=== PATIENT | female | born 1975 | race Two or more races ===

== ENCOUNTER 2023-10-08 16:09 | Outpatient (REF) | payer MEDICAID, SELFPAY ==
[2023-10-09 17:28] LABS: Bacterial Vaginosis PCR POSITIVE (Negative); Candida Group PCR NOT DETECTED (Not Detect); Candida glab krusei PCR NOT DETECTED (Not Detect); Trichomonas vaginalis PCR DETECTED (Not Detect)
== END 2023-10-08 16:10 | disposition home or self-care (01) ==
LOC: HO.HHCLNP 16:09
PROVIDERS: Visit Provider Student in an Organized Health Care Education/Training Program
DX: B20 Human immunodeficiency virus [HIV] disease (principal)
CPT/HCPCS: 0352U; 88112

== ENCOUNTER 2023-10-30 09:10 | Outpatient (REF) | payer MEDICAID, SELFPAY ==
--- NOTE | ~2023-10-30 | XR_ITS ---
EXAMINATION: XR HIP, RIGHT CLINICAL INFORMATION: Right hip pain. Patient stated ever since she tripped February 2023 she has been having issues with hip pain especially when walking. COMPARISON: None available. TECHNIQUE: 3 views of the right hip. FINDINGS: Moderate narrowing of the right hip joint space with mild lateral acetabular hypertrophic change. Right hip alignment preserved. Faint calcification/ossification in the soft tissues adjacent to the greater trochanter. XR/XR hip RT min 2V IMPRESSION: Moderate degenerative changes in the right hip. Faint calcification/ossification in the soft tissues adjacent to the greater trochanter. Additional imaging with CT scan or MRI should be considered for further evaluation if there is clinical concern for fracture or other underlying pathology.
[2023-10-30 11:59] LABS: Hematocrit 37.9 % (37.0-47.0); Hemoglobin 12.8 g/dl (12.0-16.0); Mean Corpuscular HGB Conc 33.8 g/dl (31.0-35.0); Mean Corpuscular Hemoglobin 32.4 pg (27.0-33.0); Mean Corpuscular Volume 95.9 fL (80.0-98.0); Mean Platelet Volume 11.3 fL (9.4-12.3); Platelet Count 205 X10*3/uL (160-400); Red Blood Count 3.95 X10*6/uL (4.20-5.50); Red Cell Distribution Width 13.2 % (11.0-16.0)
[2023-10-30 12:20] LABS: Estimated Average Glucose 103 mg/dL; Hemoglobin A1c % 5.2 % (<6.0)
[2023-10-30 12:32] LABS: Alanine Aminotransferase 10 U/L (0-31); Albumin Level 3.8 g/dL (3.5-5.0); Alkaline Phosphatase 54 U/L (39-117); Anion Gap 10 (12-20); Aspartate Amino Transferase 13 U/L (5-31); Bilirubin Total 0.2 mg/dL (0.0-1.0); Blood Urea Nitrogen 10 mg/dL (9-16); Calcium 8.9 mg/dL (8.4-10.2); Carbon Dioxide 24 mmol/L (22-29); Chloride 109 mmol/L (96-108); Cholesterol 148 mg/dL (<200); Estimated Glomerular Filt Rate > 60; Glucose Random 88 mg/dL (60-115); HDL Cholesterol 38 mg/dL (>40); LDL Cholesterol Calculated 95 mg/dL (<100); Potassium 4.3 mmol/L (3.3-5.1); Sodium 139 mmol/L (135-145); Total Protein 6.6 g/dL (6.5-8.0); Triglycerides 75 mg/dL (<150)
[2023-10-30 12:50] LABS: TSH reflex Free T4 0.55 uIU/mL (0.32-4.0)
[2023-10-30 14:06] LABS: CT PCR NOT DETECTED (Not Detect.); NG PCR NOT DETECTED (Not Detect.)
[2023-10-31 03:21] LABS: Syphilis Screen Nonreactive (Nonreactive)
[2023-10-31 03:44] LABS: HBc Num1 0.11 S/CO (0.00-0.79); HBsAGNum1 0.36 S/CO (0.00-0.99); Hepatitis B Core Antibody Nonreactive (Nonreactive); Hepatitis B Surface Antigen Negative (Negative); ~HepC Num1 0.07 S/CO (0.00-0.79); ~Hepatitis B Surface Antibody NONREACTIVE (Nonreactive); ~Hepatitis C Antibody Nonreactive (Nonreactive)
[2023-10-31 03:45] LABS: Hepatitis A Antibody IgG Nonreactive (Nonreactive); ~Hepatitis A Antibody IgG 0.34 S/CO (0.00-0.99)
[2023-10-31 12:34] LABS: Absolute CD3 Count 778 cells/uL (840-3060); Absolute CD4 Count 378 cells/uL (490-1740); Absolute CD8 Count 400 cells/uL (180-1170); Absolute Lymphocytes 1035 cells/uL (850-3900); CD4 CD8 Ratio 0.94 (0.86-5.00); Percent CD3 Cells 75 % (57-85); Percent CD4 Cells 37 % (30-61); Percent CD8 Cells 39 % (12-42)
[2023-10-31 23:19] LABS: Cytomegalovirus Ab IgG >10.00 U/mL; Cytomegalovirus Ab IgM <30.00 AU/mL; Mumps Virus IgG Antibody <9.00 AU/mL; Rubella IgG Antibody <0.90 Index; Toxoplasma IgG Antibody <7.20 IU/mL; Toxoplasma IgM Antibody <8.00 AU/mL
[2023-11-01 14:23] LABS: HIV RNA PCR Qn Copies 4740 copies/mL (NOT DETECTED); HIV RNA PCR Qn Log Copies 3.68 (NOT DETECTED)
[2023-11-01 22:33] LABS: TS Negative Control Passed; TS Panel A 0; TS Panel B 1; TS Positive Control Passed; TSpotTB Negative (Negative)
[2023-11-06 13:43] LABS: Glucose-6-Phosphate Dehydrogen 14.4 U/g Hgb (7.0-20.5)
== END 2023-10-30 09:11 | disposition home or self-care (01) ==
LOC: HO.HHCL 09:10
PROVIDERS: Visit Provider Student in an Organized Health Care Education/Training Program
DX: Z00.00 Encounter for general adult medical examination without abnormal findings (principal); B20 Human immunodeficiency virus [HIV] disease; M25.551 Pain in right hip
CPT/HCPCS: 0353U; 36415; 73502; 80053; 80061; 82955; 83036; 84443; 85027; 86359; 86360; 86481; 86644; 86645; 86704; 86706; 86708; 86735; 86762; 86765; 86777; 86778; 86780; 86787; 86803; 87340; 87536

== ENCOUNTER 2024-04-28 10:56 | Outpatient (REF) | payer MEDICAID, SELFPAY ==
--- NOTE | ~2024-04-28 | XR_ITS ---
EXAMINATION: XR CHEST CLINICAL INFORMATION: night sweats to r/o mediastinal Lymphadenopathy COMPARISON: None available. TECHNIQUE: 2 views of the chest were obtained. FINDINGS: No significant abnormality is noted involving the heart, lungs, mediastinum, bony thorax or soft tissues. XR/XR chest 2V IMPRESSION: Unremarkable examination. Electronically signed by: Shayy Marie MD 04/28/2024 04:02 PM [facility]
[2024-04-28 13:35] LABS: Basophils Percent Auto 0.7 % (0-2); Eosinophils Absolute Auto 0.1 X10*3/uL (0.0-0.4); Hematocrit 39.4 % (37.0-47.0); Hemoglobin 12.9 g/dl (12.0-16.0); Imm Gran Abs Auto 0.01 X10*3/uL (0.00-0.03); Imm Gran Pct Auto 0.2 % (0.0-0.4); Lymphocytes Absolute Auto 1.4 X10*3/uL (1.2-4.9); Lymphocytes Percent Auto 31.7 % (20-40); MANUAL DIFF FLAG NO; Mean Corpuscular HGB Conc 32.7 g/dl (31.0-35.0); Mean Corpuscular Hemoglobin 32.2 pg (27.0-33.0); Mean Corpuscular Volume 98.3 fL (80.0-98.0); Mean Platelet Volume 11.1 fL (9.4-12.3); Monocytes Absolute Auto 0.4 X10*3/uL (0.1-1.2); Neutrophils Absolute Auto 2.5 x10*3/uL (2.0-8.3); Neutrophils Percent Auto 55.4 % (45-73); Platelet Count 236 X10*3/uL (160-400); Red Blood Count 4.01 X10*6/uL (4.20-5.50); Red Cell Distribution Width 13.2 % (11.0-16.0); White Blood Count 4.4 X10*3/uL (4.8-10.8)
[2024-04-28 13:47] LABS: Prothrombin Time 11.6 SEC (10.9-12.4)
[2024-04-28 14:18] LABS: Alanine Aminotransferase 15 U/L (0-31); Alkaline Phosphatase 66 U/L (39-117); Anion Gap 10 (12-20); Aspartate Amino Transferase 14 U/L (5-31); Bilirubin Total 0.4 mg/dL (0.0-1.0); Blood Urea Nitrogen 6 mg/dL (9-16); Calcium 8.6 mg/dL (8.4-10.2); Carbon Dioxide 24 mmol/L (22-29); Chloride 106 mmol/L (96-108); Estimated Glomerular Filt Rate > 60; Glucose Random 173 mg/dL (60-115); Lactate Dehydrogenase 152 U/L (122-220); Potassium 3.4 mmol/L (3.3-5.1); Sodium 137 mmol/L (135-145); Total Protein 7.2 g/dL (6.5-8.0)
[2024-04-29 14:48] LABS: HIV RNA PCR Qn Copies 188 copies/mL (NOT DETECTED); HIV RNA PCR Qn Log Copies 2.27 (NOT DETECTED)
[2024-05-01 18:03] LABS: Absolute CD3 Count 925 cells/uL (840-3060); Absolute CD4 Count 408 cells/uL (490-1740); Absolute CD8 Count 512 cells/uL (180-1170); Absolute Lymphocytes 1177 cells/uL (850-3900); Percent CD3 Cells 79 % (57-85); Percent CD4 Cells 35 % (30-61); Percent CD8 Cells 43 % (12-42)
[2024-05-25 02:33] LABS: Date Viral Load Collected NG; Dolutegravir Resistance NOT PREDICTED; HIV-1 Bictegravir Resistance NOT PREDICTED; HIV-1 Cabotegravir Resistance NOT PREDICTED; HIV-1 Elvitegravir Resistance NOT PREDICTED; Raltegravir Resistance NOT PREDICTED; Value of Last HIV Viral Load NG copies/mL
== END 2024-04-28 10:57 | disposition home or self-care (01) ==
LOC: HO.HHCL 10:56
PROVIDERS: Visit Provider Student in an Organized Health Care Education/Training Program
DX: Z21 Asymptomatic human immunodeficiency virus [HIV] infection status (principal); R23.3 Spontaneous ecchymoses; R61 Generalized hyperhidrosis; Z86.19 Personal history of other infectious and parasitic diseases
CPT/HCPCS: 36415; 71046; 80053; 83615; 85025; 85610; 85730; 86359; 86360; 87536; 87900; 87901; 87906

== ENCOUNTER 2024-05-26 12:02 | Outpatient (REF) | payer MEDICAID, SELFPAY ==
[2024-05-30 19:14] LABS: HIV RNA PCR Qn Copies 60 Copies/mL; HIV RNA PCR Qn Log Copies 1.77 Log cps/mL
== END 2024-05-26 12:03 | disposition home or self-care (01) ==
LOC: HO.HHCL 12:02
PROVIDERS: Visit Provider Internal Medicine
DX: B20 Human immunodeficiency virus [HIV] disease (principal)
CPT/HCPCS: 36415; 87536; 87900

== ENCOUNTER 2024-08-25 16:51 | Outpatient (REF) | payer MEDICAID, SELFPAY ==
--- OUTSIDE RECORDS SUMMARY | 2024-08-25 18:10 | XMS_ITS | Clinical Summary ---
Author Organization [facility] Address [address] [place] [address] Care Team Providers Care Wood Type Finisher Name Role Phone Unavailable Primary Care Provider Unavailabl e Source Comments PLEASE NOTE, if this patient is a minor, it may be UNLAWFUL to discuss sensitive information that is contained in these records (such as FAMILY PLANNING, MENTAL HEALTH or SUBSTANCE ABUSE) with the minor patient's parent or other person without the patient's specific authorization.[facility] Allergies Active Allergy Reactions Criticality Noted Date Comments Dapsone Other Severe 10/08/2023 Caused anemia despite reported normal G6PD Penicillins Rash Low 10/08/2023 Medications BIKTARVY 50-200-25 mg tab Take 1 Tablet by mouth once daily Active SYMBICORT 80-4.5 mcg/actuation inhaler Inhale 2 Puffs into the lungs 2 (two) times daily Active diclofenac sodium (VOLTAREN) 1 % gel Apply 2 g topically 2 (two) times daily Right Hip Active QUEtiapine (SEROQUEL) 300 mg tabletIndicatio ns:Major depressive disorder, recurrent, severe with psychotic features (HCC-CMS) Take 1 Tablet by mouth nightly at bedtime for 30 days 30 Tablet 5 09/07/19 25 Active FLUoxetine (PROZAC) 40 mg capsuleIndicati ons:Post-trauma tic stress disorder, unspecified,FOREST (generalized anxiety disorder),Major depressive disorder, recurrent, severe with psychotic features (HCC-CMS) Take 1 Capsule by mouth once daily for 30 days 30 Capsule 5 09/07/19 25 Active FLUoxetine (PROZAC) 40 mg capsuleIndicati ons:Post-trauma tic stress disorder, unspecified,Sev ere major depression (HCC-CMS),FOREST (generalized anxiety disorder) Take 1 Capsule by mouth once daily for 30 days 30 Capsule 5 08/08/19 25 Discontinu ed(Reorder (E-Cancel Not Sent)) QUEtiapine (SEROQUEL) 100 mg tabletIndicatio ns:Severe major depression ([facility]) Take 1 Tablet by mouth nightly at bedtime for 30 days 30 Tablet 5 08/08/19 25 Discontinu ed(Quantit y/Dosage and/or Sig change) Active Problems Problem Noted Date Diagnosed Date Bilateral hip pain 10/08/2023 HIV infection (HCC-CMS) 10/08/2023 Overview (03/27/2024): Dxed 2007 Heterosexual , NO IVDU hx -Hx of ARV non compliance, hx of taj esophagitis,Hx lowest CD4 150 -Hx of ARV: Truvada,ritonavir,seems other ARV but not sure, later Dolutegravir and Descovy ,Later Biktarvy since 2020 Mild intermittent asthma without complication Penicillin allergy 10/08/2023 Tobacco use 10/08/2023 FOREST (generalized anxiety disorder) 08/16/2023 Assessment & Plan (08/07/2024 1:13 PM EDT): A: racing thoughts, worrying Plan: continue therapy support, continue Prozac Assessment & Plan (07/10/2024 12:50 PM EST): A: tearful and sad Plan: Continue Seroquel, continue therapy support, continue Prozac Assessment & Plan (06/12/2024 4:25 PM EST): A: anxious state, father yesterday Plan: Continue Seroquel, continue therapy support, continue Prozac Assessment & Plan (05/01/2024 5:58 PM EST): A: worsened by Stressors Plan: Monitor response to Seroquel, continue therapy support and Prozac Assessment & Plan (03/27/2024 6:23 PM EDT): A: Emotional dysregulation, irritability, social isolation Plan: Monitor response to Seroquel, continue therapy support and Prozac Post-traumatic stress disorder, unspecified 07/27 Assessment & Plan (08/07/2024 1:14 PM EDT): A: trust issues Plan: Continue therapy, Continue Prozac 40 mg Assessment & Plan (07/10/2024 12:50 PM EST): A: trust issues Plan: Continue therapy, Continue Prozac 40 mg Assessment & Plan (06/12/2024 4:26 PM EST): A: Flashbacks, trust issues Plan: Continue therapy, Continue Prozac 40 mg Assessment & Plan (05/01/2024 5:58 PM EST): A: Flashbacks, nightmares, hypervigilance, trust issues Plan: Continue therapy, Continue Prozac 40 mg for now Assessment & Plan (03/27/2024 6:22 PM EDT): A: Flashbacks, nightmares, hypervigilance, trust issues Plan: Continue therapy, Continue Prozac 40 mg for now Major depressive disorder, r ecurrent, severe with psychotic features ([facility]) 08/16/2023 Overview (03/27/2024): Patient presents with symptoms consistent with MDD and borderline traits, PTSD, and anxiety, complicated by HIV diagnosis and other trauma. Current medication regimen (Prozac and mirtazapine) providing inadequate symptom control. Decision to discontinue ineffective mirtazapine and initiate Seroquel 100mg for mood stabilization and sleep management while continuing Prozac. Assessment & Plan (08/07/2024 1:13 PM EDT): A: Depressed mood crying spells and AH P: Increase Seroquel to 300 mg PO nightly. Continue Prozac RTC 4 weeks Assessment & Plan (07/10/2024 12:50 PM EST): A: symptoms under control P: continue Seroquel 100 mg PO nightly. Continue Prozac RTC 4 weeks Assessment & Plan (06/12/2024 4:25 PM EST): A: symptoms under control P: Resume Seroquel 100 mg PO nightly. Continue Prozac RTC 4 weeks Assessment & Plan (05/01/2024 5:57 PM EST): A: Mood irritability, sadness, guilt P: Resume Seroquel 100 mg PO nightly. Continue Prozac RTC 4 weeks Assessment & Plan (03/27/2024 3:50 PM EDT): A: Mood irritability, crying, anger, confrontational, poor sleep P: Stop Mirtazapine( not effective), self isolation, loss of interest. Start Seroquel 100 mg PO nightly. Continue Prozac RTC 2 weeks Resolved Problems Problem Noted Date Diagnosed Date Resolved Date Bipolar disorder with severe depression (HCC-CMS) 12/18/2023 03/27/2024 Encounters Date Type Department Care Team Description 08/07/2024 12:30 PM EDT Behavioral Health Visit [facility] [address] [place] [phone] Edith Hart APRN Major depressive disorder, recurrent, severe with psychotic features (HCC-CMS) (Primary Dx); Post-traumatic stress disorder, unspecified; FOREST (generalized anxiety disorder) 07/10/2024 12:00 PM EST Behavioral Health Visit [facility] [address] [place] [phone] Edith Hart APRN Post-traumatic stress disorder, unspecified; Severe major depression (HCC-CMS); FOREST (generalized anxiety disorder) 06/12/2024 1:00 PM EST Behavioral Health Visit [facility] [address] [place] [phone] Edith Hart APRN Post-traumatic stress disorder, unspecified; Severe major depression (HCC-CMS); FOREST (generalized anxiety disorder) from Last 3 Months Immunizations Immunization Administration Dates Next Due HEP A, UNSPECIFIED 03/01/2004 Hep A, adult 03/17/2024 Hep B, Unspecified 08/04/2004,03/01/2004, 004 Hep B,adult,adjuvanted (HEPLISAV) 03/17/2024 INFLUENZA, SEASONAL, INJECTABLE 08/17/19 23,09/20/2021,07/04/2019,06/12,02/17/2017,07/01/2012,07/14/2010 Influenza, Whole 05/15/2011,07/08/2009, 8 MENINGOCOCCAL ACWY, UNSPECIFIED 12/10/2018,06/12 Meningococcal (A,C,Y, W) con jugate vaccine 03/17/2024 PNEUMOCOCCAL CONJUGATE PCV 2 0 (Prevnar) 10/09/2023,08/16/2022 PNEUMOCOCCAL POLYSACCHARIDE PPV23 02/17/2017,02/2005 TDAP 10/09/2023,06/12/2018 Td (adult) unspecified 01/27/2004 Social History Tobacco Use Types Packs/Day Years Used Date Smoking Tobacco: Every Day Cigarettes 0.5 22.2 Started: 2002 Smokeless Tobacco: Never Tobacco Cessation:Ready to Q uit: No; Counseling Given: Yes Alcohol Use Standard Drinks/Week Comments Not Asked 0 (1 standard drink = 0.6 oz pur e alcohol) ocassionally Social Connections Answer Date Recorded Connectedness 0 03/04/2024 Financial Resource Strain Answer Date R ecorded Financial Resource Strain 0 2023 Stress Answer Date Recorded Stress 0 03/04/2024 Physical Activity Answer Date Recorded Physical Activity 0 03/04/2024 Food Insecurity Answer Date Recorded Food 0 03/04/2024 Transportation Needs Answer Date Record ed Transportation 0 03/04/2024 Housing Stability Answer Date Recorded Housing 0 03/04/2024 Safety and Environment Answer Date Franklin rded Safety 0 03/04/2024 Utilities Answer Date Recorded Utilities 0 03/04/2024 Employment Answer Date Recorded Stress 0 03/04/2024 Comments Unknown Sex and Gender Information Value Date Recorded Sex Assigned at Female 03/04/2024 7:16 AM PDT Legal Sex Female 7:16 AM PDT Gender Identity Female 03/04/2024 7:16 AM PDT Sexual Orientation Not on file Plan of Treatment Upcoming Encounters Date Type Department Care Team (Late st Contact Info) Description 09/04/2024 12:30 PM EDT Behavioral Health Visit [facility] [address] [place] [phone] Edith Hart, INSPECTOR STRUCTURAL BONDING [address] [facility] [place] [id number] Health Maintenance Due Date Last Done Comments Anxiety Screening 1977 Depression Monitoring 1977 Diabetes Screening 1977 HPV Screening 1977 Pap + HPV 1977 Syphilis Screening 05/21/1991 Relationship Safety Screening/Counseling 1992 Hypertension Screening (#1) 1995 Imm-MMR (1 of 2 - Risk 2-dos e series) 1995 Imm-Zoster, Recombinant (1 of 2) 1996 Cervical Cancer Screening 1998 Pap Smear 1998 Breast Cancer Screening (Mammogram) 2017 CT Colonography 2022 Colonoscopy 2022 Colorectal Cancer Screening 2022 FIT/gFOBT 2022 Fecal DNA 2022 Flexible Sigmoidoscopy 2022 [id number] ( season) 2024 023, 09/20/2021 Alcohol and Drug Screen 05/28/2024 Lipid Screening 10/29/2024 10/30/2023 Tobacco Cessation Counseling (#1) 03/27/2025 Imm-Meningococcal (4 - Risk 2-dose series) 03/17/2029 03/17/2024, 12/10/2018, 06/12/2018 Imm-DTaP/Tdap/Td (3 - Td or Tdap) 10/08/2033 10/09/2023, 06/12/2018, 01/27/2004 Imm-Pneumococcal Completed 10/09/2023, , 02/17/2017, Additional history exists Hepatitis C Screening Completed 10/30/2023 Imm-Hepatitis A Completed 03/17/2024, 03/01/2004 Imm-Hepatitis B Completed 04/28/2024, 02/26, 08/04/2004, Additional history exists Imm-Influenza Completed 04/28/2024, 07/27, 09/20/2021, Additional history exists Cervical Ablation/Cold-Knife Conization Discontinued Cervical Cryotherapy Discontinued Colposcopy Discontinued Endometrial Biopsy Discontinued Excision/Leep Discontinued HPV Genotyping Discontinued Vaginal Pap Discontinued Vulvoscopy Discontinued Insurance [place] MEDICAID [facility]
[2024-08-27 13:13] LABS: Trichomonas (NAAT) NOT DETECTED (NOT DETECTED)
[2024-08-27 15:54] LABS: C. trachomatis RNA TMA NOT DETECTED (NOT DETECTED); N. gonorrhoeae RNA TMA NOT DETECTED (NOT DETECTED)
[2024-08-28 15:06] LABS: HPV Genotype 16 Negative (Negative); HPV Genotype 18 Negative (Negative); HPV High Risk Negative (Negative)
== END 2024-08-25 16:52 | disposition home or self-care (01) ==
LOC: HO.HHCLNP 16:51
PROVIDERS: Visit Provider Advanced Practice Midwife
DX: Z12.4 Encounter for screening for malignant neoplasm of cervix (principal); Z11.3 Encounter for screening for infections with a predominantly sexual mode of transmission
CPT/HCPCS: 87491; 87591; 87626; 87661; 88175

== ENCOUNTER 2024-10-28 17:17 | Outpatient (REF) | payer MEDICAID, SELFPAY ==
--- OUTSIDE RECORDS SUMMARY | 2024-10-28 17:23 | XMS_ITS | Clinical Summary ---
Author Organization [facility] Address [address] [place] [address] Care Team Providers Care Barrel Inspector Tight Name Role Phone Unavailable Primary Care Provider [...] 2 (two) times daily Right Hip Active FLUoxetine (PROZAC) 40 mg capsuleIndicati ons:Post-trauma tic stress disorder, unspecified,FOREST (generalized anxiety disorder),Major depressive disorder, recurrent, severe with psychotic features (HCC-CMS) Take 1 Capsule by mouth once daily for 30 days 30 Capsule 1 5 Active QUEtiapine (SEROQUEL) 300 mg tabletIndicatio ns:Major depressive disorder, recurrent, severe with psychotic features (HCC-CMS) Take 1 Tablet by mouth nightly at bedtime for 30 days 30 Tablet 1 5 Active Active Problems Problem Noted Date Diagnosed Date Bilateral hip pain 10/08/2023 HIV infection (HCC-CMS) 10/08/2023 Overview (03/27/2024): Dxed 2007 Heterosexual , NO IVDU hx -Hx of ARV non compliance, hx of taj esophagitis,Hx lowest CD4 150 -Hx of ARV: Truvada,ritonavir,seems other ARV but not sure, later Dolutegravir and Descovy ,Later Biktarvy since 2020 Mild intermittent asthma without complication ([facility]-HCC) 10/08/2023 Penicillin allergy 10/08/2023 Tobacco use 10/08/2023 FOREST (generalized anxiety disorder) 08/16/2023 Assessment & Plan (09/04/2024 1:21 PM EDT): A: improving Plan: continue therapy support, continue Prozac Assessment & Plan (08/07/2024 1:13 PM EDT): [...] stress disorder, unspecified 07/27 Assessment & Plan (09/04/2024 1:21 PM EDT): A: trust issues Plan: Continue therapy, Continue Prozac 40 mg Assessment & Plan (08/07/2024 1:14 PM EDT): [...] disorder, r ecurrent, severe with psychotic features ([facility]) 08/16/2023 Overview (03/27/2024): Patient presents with symptoms consistent with MDD and borderline traits, PTSD, and anxiety, complicated by HIV diagnosis and other trauma. Current medication regimen (Prozac and mirtazapine) providing inadequate symptom control. Decision to discontinue ineffective mirtazapine and initiate Seroquel 100mg for mood stabilization and sleep management while continuing Prozac. Assessment & Plan (09/04/2024 1:21 PM EDT): A: psychological symptoms under reasonable control P: Continue Seroquel to 300 mg PO nightly. Continue Prozac RTC 8 weeks Assessment & Plan (08/07/2024 1:13 PM EDT): [...] Resolved Date Bipolar disorder with severe depression ([facility]) 12/18/2023 03/27/2024 Encounters Date Type Department Care Team Description 09/04/2024 12:30 PM EDT Behavioral Health Visit [facility] [address] [place] [phone] Edith Hart APRN Post-traumatic stress disorder, unspecified; FOREST (generalized anxiety disorder); Major depressive disorder, recurrent, severe with psychotic features ([facility]) 08/07/2024 12:30 PM EDT Behavioral Health Visit [facility] [address] [place] [phone] Edith Hart APRN Major depressive disorder, recurrent, severe with psychotic features ([facility]) (Primary Dx); Post-traumatic stress disorder, unspecified; FOREST (generalized anxiety disorder) from Last 3 Months Immunizations Immunization Administration Dates Next Due HEP A, UNSPECIFIED 03/01/2004 Hep A, adult 03/17/2024 Hep B, Unspecified 08/04/2004,03/01/2004, 004 Hep B,adult,adjuvanted (HEPLISAV) 03/17/2024 INFLUENZA, SEASONAL, INJECTABLE 08/17/19,09/20/2021,07/04/2019,06/12,02/17/2017,07/01/2012,07/14/2010 Influenza, Whole 05/15/2011,07/08/2009, 8 MENINGOCOCCAL ACWY, UNSPECIFIED 12/10/2018,06/12 Meningococcal Conjugate Quad rivalent (MenQuadfi), MenACWY-TT (MCV4) 03/17/2024 PNEUMOCOCCAL CONJUGATE PCV 2 0 (Prevnar) 10/09/2023,08/16/2022 PNEUMOCOCCAL POLYSACCHARIDE PPV23 (Pneumovax 23) 02/17/2017,08/04/2004 TDAP 10/09/2023,06/12/2018 Td (adult) unspecified 01/27/2004 Social History Tobacco Use Types Packs/Day Years Used Date Smoking Tobacco: Every Day Cigarettes 0.5 22.4 Started: 2002 Smokeless Tobacco: Never Tobacco Cessation:Ready [...] Upcoming Encounters Date Type Department Care Team ([facility] Contact Info) Description 10/30/2024 12:30 PM EDT Behavioral Health Visit [facility] [address] [place] [phone] Edith Hart APRN [address] [place] [address] Health Maintenance Due Date Last Done Comments Anxiety Screening 1977 Depression Monitoring 1977 Diabetes Screening 1977 HPV Screening 1977 Pap + HPV 1977 Syphilis Screening 05/21/1991 Relationship Safety Screening/Counseling 1992 Hypertension Screening (#1) 1995 Imm-MMR (1 of 2 - Risk 2-dose series) 1995 Imm-Zoster, Recombinant (1 of 2) 1996 Cervical Cancer Screening 1998 Pap Smear 1998 Breast Cancer Screening (Mammogram) 2017 CT Colonography 2022 Colonoscopy 2022 Colorectal Cancer Screening 2022 FIT/gFOBT 2022 Fecal DNA 2022 Flexible Sigmoidoscopy 2022 [id number]-17 ( season) 2024 10/11/2022, 09/20/2021 Alcohol and Drug Screen 05/28/2024 Tobacco Cessation Counseling (#1) 03/27/2025 Lipid Screening 10/29/2028 10/30/2023 Imm-Meningococcal (4 - Risk 2-dose series) 03/17/2029 [...] Biopsy Discontinued Excision/Leep Discontinued HPV Genotyping Discontinued Imm-HIB Aged Out No longer eligi ble based on patient's age to complete this topic Vaginal Pap Discontinued Vulvoscopy Discontinued Insurance [place] MEDICAID [facility]
[2024-10-30 02:53] LABS: C. Trachomatis RNA TMA, Throat NOT DETECTED (NOT DETECTED); N. gonorrhoeae RNA TMA, Throat NOT DETECTED (NOT DETECTED)
[2024-11-16 09:14] LABS: HPV MRNA E6/E7 Rectal DETECTED
[2024-11-19 17:03] LABS: HPV 16 RNA, Rectal NOT DETECTED; HPV 18/45 RNA Rectal NOT DETECTED
== END 2024-10-28 17:18 | disposition home or self-care (01) ==
LOC: HO.HHCLNP 17:17
PROVIDERS: Visit Provider Student in an Organized Health Care Education/Training Program
DX: Z00.00 Encounter for general adult medical examination without abnormal findings (principal)
CPT/HCPCS: 36415; 87491; 87591; 87624; 87625; 88112

== ENCOUNTER 2024-11-04 09:05 | Outpatient (REF) | payer MEDICAID, SELFPAY ==
--- NOTE | ~2024-11-04 | XR_ITS ---
EXAMINATION: XR RIBS 3 VIEWS MINIMUM WITH CHEST LEFT HISTORY: PAIN COMPARISON: Correlation is made with PA and lateral views of the chest dated 04/28/2024. FINDINGS: A single PA view of the chest and 3 views of the left ribs are submitted. The lungs are expanded and clear. There is no pleural effusion, pneumothorax, or pulmonary vascular congestion. The heart is normal in size. The bones are intact. There is no evidence of fracture of the left ribs. XR/XR ribs LT min 3V w CXR1V IMPRESSION: No acute cardiopulmonary abnormality. No evidence of fracture of the left ribs. Electronically signed by: Goivanny Gong MD 11/04/2024 09:33 AM EDT RP
--- NOTE | ~2024-11-04 | XR_ITS ---
EXAMINATION: XR LUMBOSACRAL SPINE CLINICAL INFORMATION: ongoing loer back pain COMPARISON: None available. TECHNIQUE: Three views of the lumbosacral spine. FINDINGS: There is normal lumbar lordosis. The vertebral heights and alignment is normal. There is mild loss of L4-5 and L5-S1 disc heights. Rest of the disc heights are normal. No acute fracture, lytic or sclerotic process seen. SI joints are symmetrical. The paravertebral soft tissues are normal. XR/XR lumbar spine 2-3V IMPRESSION: Degenerative disc changes L4-5 and L5-S1 disc levels. Electronically signed by: Syd Flores MD 11/04/2024 09:36 AM EDT
--- OUTSIDE RECORDS SUMMARY | 2024-11-04 09:48 | XMS_ITS | Clinical Summary ---
Author Organization [facility] Address [address] [place] [address] Care Team Providers Care Mechanical Unit Repairer Name Role Phone Unavailable Primary Care Provider [...] disorder, r ecurrent, severe with psychotic features ([facility]) 08/16/2023 Overview (03/27/2024): Patient presents with [...] Resolved Date Bipolar disorder with severe depression ([facility]) 12/18/2023 03/27/2024 Encounters Date Type Department Care Team Description 09/04/2024 12:30 PM EDT Behavioral Health Visit [facility] [address] [place] [phone] Edith Hart APRN Post-traumatic stress disorder, unspecified; FOREST (generalized anxiety disorder); Major depressive disorder, recurrent, severe with psychotic features ([facility]) 08/07/2024 12:30 PM EDT Behavioral Health Visit [facility] [address] [place] [phone] Edith Hart APRN Major depressive disorder, recurrent, severe with psychotic features ([facility]) (Primary Dx); Post-traumatic stress disorder, unspecified; FOREST [...] Orientation Not on file Plan of Treatment Health Maintenance Due Date Last Done Comments [...] 2022 Fecal DNA 2022 Flexible Sigmoidoscopy 2022 [id number] ( season) 2024 10/11/2022, 09/20/2021 Alcohol and [...] topic Vaginal Pap Discontinued Vulvoscopy Discontinued Insurance [place] MEDICAID [facility]
== END 2024-11-04 09:06 | disposition home or self-care (01) ==
LOC: HO.HHCX 09:05
PROVIDERS: Visit Provider Student in an Organized Health Care Education/Training Program
DX: R07.81 Pleurodynia (principal); M54.50 Low back pain, unspecified
CPT/HCPCS: 71101; 72100

== ENCOUNTER → 2024-11-04 09:05 | Outpatient (BNV) | payer MEDICAID, SELFPAY | PROVIDERS: Visit Provider Radiology Diagnostic Radiology | DX: R07.81 Pleurodynia (principal); M51.360 Other intervertebral disc degeneration, lumbar region with discogenic back pain only | CPT/HCPCS: 71101; 72100 ==

== ENCOUNTER 2025-01-12 13:26 | Outpatient (REF) | payer MEDICAID, SELFPAY ==
--- NOTE | ~2025-01-12 | MM_ITS ---
EXAMINATION: MM SCREENING DIGITAL BREAST TOMOSYNTHESIS, BILATERAL CLINICAL INFORMATION: Screening. Asymptomatic. COMPARISON: Mammography: Baseline. TECHNIQUE: Digital breast mammography with tomosynthesis is performed in both the craniocaudal and mediolateral oblique views along with computer-aided detection (CAD). FINDINGS: The breasts are heterogeneously dense, which may obscure small masses (ACR BI-RADS breast composition Category c). There are no significant masses, abnormal calcifications, or other abnormalities. MM/MM tomosynthesis screening BI IMPRESSION: No mammographic evidence of malignancy. ASSESSMENT: BI-RADS BI-RADS 1 - Negative RECOMMENDATION: Routine annual mammography screening. 1 year F/U This examination should not preclude the clinical evaluation of a suspicious palpable abnormality. This patient's information was entered into a reminder system with a target due date for their next mammogram. Electronically signed by: Rupa Hector DO 01/14/2025 10:49 AM EDT
--- OUTSIDE RECORDS SUMMARY | 2025-01-12 14:18 | XMS_ITS | Clinical Summary ---
Author Organization [facility] Address [address] [place] [address] Care Team Providers Care Learning Administrator Name Role Phone Unavailable Primary Care Provider [...] depressive disorder, recurrent, severe with psychotic features ([facility] & HHS-HCC) Take 1 Capsule by mouth once daily for 30 days. 30 Capsule 1 5 Active QUEtiapine (SEROQUEL) 300 mg tabletIndicatio ns:Major depressive disorder, recurrent, severe with psychotic features (CMS & HHS-HCC) Take 1 Tablet by mouth nightly at bedtime for 30 days. 30 Tablet 1 5 Active busPIRone (BUSPAR) 5 mg tablet Take 1 Tablet by mouth 3 (three) times daily for 30 days. 90 Tablet 5 Active Active Problems Problem Noted Date Diagnosed Date Bilateral hip pain 10/08/2023 HIV infection (CMS & HHS-HCC) 10/08/2023 Overview (03/27/2024): Dxed 2008 Heterosexual , NO IVDU hx -Hx of ARV non compliance, hx of taj esophagitis,Hx lowest CD4 150 -Hx of ARV: Truvada,ritonavir,seems other ARV but not sure, later Dolutegravir and Descovy ,Later Biktarvy since 2020 Mild intermittent asthma without complication (H HS-HCC) 10/08/2023 Penicillin allergy 10/08/2023 Tobacco use 10/08/2023 FOREST (generalized anxiety disorder) 08/16/2023 Assessment & Plan (11/27/2024 3:52 PM EDT): A: increased anxiety due to psychosocial stress. Plan: Start Buspar 5 Mg po TID. Assessment & Plan (09/04/2024 1:21 PM EDT): [...] stress disorder, unspecified 07/27 Assessment & Plan (11/27/2024 3:26 PM EDT): A: trust issues, crying, flashbacks Plan: Continue therapy, Continue Prozac 40 mg Assessment & Plan (09/04/2024 1:21 PM EDT): [...] disorder, r ecurrent, severe with psychotic features (CMS & [facility]-HCC) 08/16/2023 Overview (03/27/2024): Patient presents with symptoms consistent with MDD and borderline traits, PTSD, and anxiety, complicated by HIV diagnosis and other trauma. Current medication regimen (Prozac and mirtazapine) providing inadequate symptom control. Decision to discontinue ineffective mirtazapine and initiate Seroquel 100mg for mood stabilization and sleep management while continuing Prozac. Assessment & Plan (11/27/2024 3:53 PM EDT): A: increased psychosocial stress. P: Continue Seroquel to 300 mg PO nightly. Continue Prozac RTC 4 weeks Assessment & Plan (09/04/2024 1:21 PM EDT): [...] Resolved Date Bipolar disorder with severe depression (CMS & HHS-HCC) 12/18/2023 03/27/2024 Encounters Date Type Department Care Team Description 11/27/2024 3:00 PM EDT Behavioral Health Visit [facility] [address] [place] [phone] Edith Hart APRN from Last 3 Months Immunizations Immunization Administration Dates Next Due HEP A, UNSPECIFIED 03/01/2004 Hep A, adult 03/17/2024 Hep B, Unspecified 08/04/2004,03/01/2004, 004 Hep B,adult,adjuvanted (HEPLISAV) 03/17/2024 INFLUENZA, SEASONAL, INJECTABLE 08/17/19 23,09/20/2021,07/04/2019,06/12,02/17/2017,07/01/2012,07/14/2010 Influenza, Whole 05/15/2011,07/08/2009, 8 MENINGOCOCCAL ACWY, UNSPECIFIED 12/10/2018,06/12 Meningococcal Conjugate Quad rivalent (MenQuadfi), MenACWY-TT (MCV4) 03/17/2024 PNEUMOCOCCAL CONJUGATE PCV 2 0 (Prevnar 20) 10/09/2023,08/16/2022 PNEUMOCOCCAL POLYSACCHARIDE PPV23 (Pneumovax 23) 02/17/2017,08/04/2004 TDAP 10/09/2023,06/12/2018 Td (adult) unspecified 01/27/2004 Social History Tobacco Use Types Packs/Day Years Used Date Smoking Tobacco: Every Day Cigarettes 0.5 22.6 Started: 2002 Smokeless Tobacco: Never Tobacco Cessation:Ready [...] 2022 Fecal DNA 2022 Flexible Sigmoidoscopy 2022 [id number] ( season) 2024 10/11/2022, 09/20/2021 Alcohol and Drug Screen 05/28/2024 Imm-Influenza (#1) 2025 04/28/2024, 0 08/16/2022, 09/20/2021, Additional history exists Tobacco Cessation Counseling (#1) 03/27/2025 Lipid Screening 10/29/2028 10/30/2023 Imm-Meningococcal (4 - Risk 2-dose series) 03/17/2029 03/17/2024, 12/10/2018, 06/12/2018 Imm-DTaP/Tdap/Td (3 - Td or Tdap) 10/08/2033 10/09/2023, 06/12/2018, 01/27/2004 Imm-Pneumococcal Completed 10/09/2023, , 02/17/2017, Additional history exists Hepatitis C Screening Completed 10/30/2023 Imm-Hepatitis B Completed 04/28/2024, 02/26, 08/04/2004, Additional history exists Imm-Hepatitis A Completed 10/28/2024, 02/26, 03/01/2004 Cervical Ablation/Cold-Knife Conization Discontinued Cervical Cryotherapy Discontinued Colposcopy Discontinued Endometrial Biopsy Discontinued Excision/Leep Discontinued HPV Genotyping Discontinued Imm-HIB Aged Out No longer eligi ble based on patient's age to complete this topic Vaginal Pap Discontinued Vulvoscopy Discontinued Insurance [place] MEDICAID
== END 2025-01-12 13:27 | disposition home or self-care (01) ==
LOC: HO.MAMMO 13:26
PROVIDERS: PCP Student in an Organized Health Care Education/Training Program; Visit Provider Student in an Organized Health Care Education/Training Program
DX: Z12.31 Encounter for screening mammogram for malignant neoplasm of breast (principal)
CPT/HCPCS: 77063; 77067

== ENCOUNTER → 2025-01-12 14:00 | Outpatient (BNV) | payer MEDICAID, SELFPAY | PROVIDERS: PCP Student in an Organized Health Care Education/Training Program; Visit Provider Internal Medicine | DX: Z12.31 Encounter for screening mammogram for malignant neoplasm of breast (principal) | CPT/HCPCS: 77063; 77067 ==

== ENCOUNTER 2025-02-20 13:18 | Outpatient (REF) | payer MEDICAID, SELFPAY ==
--- NOTE | ~2025-02-20 | US_ITS ---
EXAMINATION: US PELVIS CLINICAL INFORMATION: Menorrhagia COMPARISON: None available. TECHNIQUE: Ultrasound of the pelvis is performed using transabdominal technique only. The patient refused transvaginal scanning. FINDINGS: Significantly limited examination due to low bladder volume and transabdominal only scanning. Uterus: The uterus is anteverted, retroflexed, and measures 10.2 x 6.0 x 5.8 cm. The cervix is grossly normal in appearance. The double wall endometrial thickness is 7 mm. The uterus is smooth in contour and has normal myometrial echogenicity. No visible fibroid. Adnexa: Neither ovary could be visualized with certainty. No adnexal masses. No free fluid in the cul-de-sac. US/US pelvic complete IMPRESSION: 1. Limited transabdominal pelvic ultrasound. The patient refused transvaginal scanning. 2. No definite endometrial thickening. 3. The ovaries could not be visualized with certainty. No gross adnexal masses. Electronically signed by: Logan Roque MD 02/20/2025 01:49 PM EDT
--- OUTSIDE RECORDS SUMMARY | 2025-02-20 14:33 | XMS_ITS | Clinical Summary ---
Author Organization [facility] Address [address] [place] [address] Care Team Providers Care Table Games Floor Supervisor Name Role Phone Unavailable Primary Care Provider [...] Right Hip Active FLUoxetine (PROZAC) 40 mg capsuleIndicat ions:Post-trau matic stress disorder, unspecified,GA D (generalized anxiety disorder),Rosey r depressive disorder, recurrent, severe with psychotic features (CMS & HHS-HCC) Take 1 Capsule by mouth once daily for 30 days. 30 Capsule 1 11/28/19 25 Active busPIRone (BUSPAR) 5 mg tablet Take 1 Tablet by mouth 3 (three) times daily for 30 days. 90 Tablet 11/28/19 25 Active QUEtiapine (SEROQUEL) 300 mg tabletIndicati ons:Major depressive disorder, recurrent, severe with psychotic features (CMS & HHS-HCC) TAKE 1 TABLET BY MOUTH EVERY DAY AT BEDTIME 30 Tablet 1 02/20/20 25 Active QUEtiapine (SEROQUEL) 300 mg tabletIndicati ons:Major depressive disorder, recurrent, severe with psychotic features (CMS & HHS-HCC) Take 1 Tablet by mouth nightly at bedtime for 30 days. 30 Tablet 1 11/28/19 25 025 Discontinued Active Problems Problem Noted Date Diagnosed Date Bilateral hip pain 10/08/2023 HIV infection ([facility]) 10/08/2023 Overview (03/27/2024): Dxed 2007 Heterosexual , NO IVDU hx -Hx of ARV non compliance, hx of taj esophagitis,Hx lowest CD4 150 -Hx of ARV: Truvada,ritonavir,seems other ARV but not sure, later Dolutegravir and Descovy ,Later Biktarvy since 2020 Mild intermittent asthma without complication ([facility]) 10/08/2023 Penicillin allergy 10/08/2023 Tobacco use 10/08/2023 [...] disorder, r ecurrent, severe with psychotic features ([facility]-HCC) 08/16/2023 Overview (03/27/2024): Patient presents with symptoms [...] Bipolar disorder with severe depression (CMS & [facility]) 12/18/2023 03/27/2024 Encounters Date Type Department Care Team Description 11/27/2024 3:00 PM EDT Behavioral Health Visit [facility] [address] [place] [phone] Edith Hart APRN [...] Date Smoking Tobacco: Every Day Cigarettes 0.5 22.7 Started: 2002 Smokeless Tobacco: Never Tobacco Cessation:Ready [...] 2022 Fecal DNA 2022 Flexible Sigmoidoscopy 2022 Alcohol and Drug Screen 05/28/2024 [id number] ( season) 2025 10/11/2022, 09/20/2021 Imm-Influenza (#1) 2025 04/28/2024, 0 08/16/2022, 09/20/2021, [...] topic Vaginal Pap Discontinued Vulvoscopy Discontinued [place]
== END 2025-02-20 13:19 | disposition home or self-care (01) ==
LOC: HO.US 13:18
PROVIDERS: PCP Student in an Organized Health Care Education/Training Program; Visit Provider Student in an Organized Health Care Education/Training Program
DX: N92.1 Excessive and frequent menstruation with irregular cycle (principal)
CPT/HCPCS: 76856

== ENCOUNTER 2025-03-05 10:14 | Outpatient (REF) | payer MEDICAID, SELFPAY ==
[2025-03-05 12:08] LABS: Hematocrit 34.4 % (37.0-47.0); Hemoglobin 11.3 g/dl (12.0-16.0); Mean Corpuscular HGB Conc 32.8 g/dl (31.0-35.0); Mean Corpuscular Hemoglobin 30.1 pg (27.0-33.0); Mean Corpuscular Volume 91.7 fL (80.0-98.0); NRBC Abs Auto 0.000 X10*3/uL (0.0-0.012); NRBC Pct Auto 0.0 /100WBC (0.0-0.2); Platelet Count 290 X10*3/uL (160-400); Red Blood Count 3.75 X10*6/uL (4.20-5.50); White Blood Count 4.7 X10*3/uL (4.8-10.8)
[2025-03-05 14:08] LABS: Alanine Aminotransferase 8 U/L (0-31); Albumin Level 4.0 g/dL (3.5-5.0); Alkaline Phosphatase 62 U/L (39-117); Anion Gap 13 (12-20); Aspartate Amino Transferase 17 U/L (5-31); Blood Urea Nitrogen 9 mg/dL (9-16); Calcium 8.9 mg/dL (8.4-10.2); Carbon Dioxide 25 mmol/L (22-29); Chloride 108 mmol/L (96-108); Cholesterol 149 mg/dL (<200); Estimated Glomerular Filt Rate > 60; HDL Cholesterol 43 mg/dL (>40); Potassium 4.0 mmol/L (3.3-5.1); Sodium 142 mmol/L (135-145); Total Protein 7.2 g/dL (6.5-8.0); Triglycerides 55 mg/dL (<150)
[2025-03-05 14:32] LABS: Folate 8.5 ng/mL (> or = 4.0); Vitamin B12 462 pg/mL (200-900)
[2025-03-05 14:33] LABS: HBS Num1 256.21 mIU/mL (0-7.99); HBc Num1 0.13 S/CO (0.00-0.79); HBsAGNum1 0.37 S/CO (0.00-0.99); Hepatitis B Surface Antigen Negative (Negative); ~HepC Num1 0.16 S/CO (0.00-0.79); ~Hepatitis B Surface Antibody REACTIVE (Nonreactive); ~Hepatitis C Antibody Nonreactive (Nonreactive)
[2025-03-05 14:37] LABS: Syphilis Screen Reactive (Nonreactive)
[2025-03-06 08:26] LABS: ~Hepatitis A Antibody IgG 10.28 S/CO (0.00-0.99)
[2025-03-06 08:54] LABS: Ferritin 7 ng/mL (10-250); Iron 23 mcg/dL (30-160); Percent Iron Saturation 7 % (15-50); Total Iron Binding Capacity 325 mcg/dL (228-428); Unsaturated Iron Binding 302 ug/dL
[2025-03-06 16:43] LABS: HIV RNA PCR Qn Copies 115 copies/mL (NOT DETECTED); HIV RNA PCR Qn Log Copies 2.06 (NOT DETECTED)
[2025-03-09 00:19] LABS: TS Negative Control Passed; TS Panel A 0; TS Panel B 1; TS Positive Control Passed; TSpotTB Negative (Negative)
[2025-03-09 18:52] LABS: Absolute CD3 Count 1080 cells/uL (840-3060); Absolute CD8 Count 609 cells/uL (180-1170); Percent CD3 Cells 73 % (57-85); Percent CD8 Cells 41 % (12-42)
[2025-03-18 11:42] LABS: T.Pallidum Particle Agg Test Reactive (Nonreactive)
== END 2025-03-05 10:15 | disposition home or self-care (01) ==
LOC: HO.HHCL 10:14
PROVIDERS: PCP Student in an Organized Health Care Education/Training Program; Visit Provider Student in an Organized Health Care Education/Training Program
DX: Z00.00 Encounter for general adult medical examination without abnormal findings (principal); Z11.1 Encounter for screening for respiratory tuberculosis; Z11.4 Encounter for screening for human immunodeficiency virus [HIV]; Z11.59 Encounter for screening for other viral diseases; Z11.3 Encounter for screening for infections with a predominantly sexual mode of transmission; R61 Generalized hyperhidrosis; Z21 Asymptomatic human immunodeficiency virus [HIV] infection status
CPT/HCPCS: 36415; 80053; 80061; 82607; 82728; 82746; 83036; 83540; 83615; 84443; 85027; 86359; 86360; 86481; 86592; 86704; 86706; 86708; 86780; 86803; 87340; 87536

== ENCOUNTER 2025-03-11 10:02 | Outpatient (REF) | payer MEDICAID, SELFPAY ==
--- NOTE | 2025-03-11 | PFT_ITS ---
Flows: FEV1: 96 % of predicted at 2.63 L FVC: 92 % of predicted at 3.13 L FEV1/FVC: 84 % Bronchodilator response: Absent Volumes: Total lung capacity: 82 % of predicted at 4.11 L Residual volume: 74 % of predicted at 1.04 L Slow vital capacity: 84 % of predicted at 3.08 L Expiratory reserve volume: 64 % of predicted at 0.66 L Diffusion capacity: Mildly decreased, corrects to normal after adjustment for alveolar ventilation. Impression: No obstructive or restrictive ventilatory defect. No bronchodilator response. Decreased expiratory reserve volume suggests extrathoracic restriction likely secondary to abdominal obesity. Decreased diffusion capacity suggests emphysema. MTDD
[2025-03-11 11:00] VITALS: PULSE 59; O2SAT 99
--- OUTSIDE RECORDS SUMMARY | 2025-03-11 11:47 | XMS_ITS | Clinical Summary ---
Author Organization [facility] Address [address] [place] [address] Care Team Providers Care Global Chief Experience Officer Name Role Phone Unavailable Primary Care Provider [...] depressive disorder, recurrent, severe with psychotic features Take 1 Capsule by mouth once daily for 30 days. 30 Capsule 1 11/28/19 25 Active busPIRone (BUSPAR) 5 mg tablet Take 1 Tablet by mouth 3 (three) times daily for 30 days. 90 Tablet 11/28/19 25 Active QUEtiapine (SEROQUEL) 300 mg tabletIndicati ons:Major depressive disorder, recurrent, severe with psychotic features TAKE 1 TABLET BY MOUTH EVERY DAY AT BEDTIME 30 Tablet 1 02/20/20 25 Active QUEtiapine (SEROQUEL) 300 mg tabletIndicati ons:Major depressive disorder, recurrent, severe with psychotic features Take 1 Tablet by mouth nightly at bedtime for 30 days. 30 Tablet 1 07/03 025 Discontinued Active Problems Problem Noted Date Diagnosed Date Bilateral hip pain 10/08/2023 HIV infection 10/08/2023 Overview (03/27/2024): Dxed 2008 Heterosexual , [...] disorder, r ecurrent, severe with psychotic features 08/16/2023 Overview (03/27/2024): Patient presents with symptoms [...] Resolved Date Bipolar disorder with severe depression 12/18/2023 03/27/2024 Immunizations Immunization Administration Dates Next Due HEP A, UNSPECIFIED 03/01/2004 Hep A, adult 03/17/2024 Hep B, Unspecified 08/04/2004,03/01/2004,09/03/2 004 Hep B,adult,adjuvanted (HEPLISAV) 03/17/2024 INFLUENZA, SEASONAL, INJECTABLE 08/17/19 23,09/20/2021,07/04/2019,06/12,02/17/2017,07/01/2012,07/14/2010 Influenza, Whole 05/15/2011,07/08/2009, 8 MENINGOCOCCAL ACWY, UNSPECIFIED 12/10/2018,06/12 Meningococcal Conjugate Quad rivalent (MenQuadfi), MenACWY-TT (MCV4) 03/17/2024 PNEUMOCOCCAL CONJUGATE PCV 2 0 (Prevnar 20) 10/09/2023,08/16/2022 PNEUMOCOCCAL POLYSACCHARIDE PPV23 (Pneumovax 23) 02/17/2017,08/04/2004 TDAP 10/09/2023,06/12/2018 Td (adult) unspecified 01/27/2004 Social History Tobacco Use Types Packs/Day Years Used Date Smoking Tobacco: Every Day Cigarettes 0.5 22.8 Started: 2002 Smokeless Tobacco: Never Tobacco Cessation:Ready [...] Sigmoidoscopy 2022 Alcohol and Drug Screen 05/28/2024 Lipid Screening 10/29/2024 10/30/2023 [id number] ( season) 2025 10/11/2022, 09/20/2021 Imm-Influenza (#1) 2025 04/28/2024, 0 08/16/2022, 09/20/2021, Additional history exists Tobacco Cessation Counseling (#1) 03/27/2025 Imm-Meningococcal (4 [...] topic Vaginal Pap Discontinued Vulvoscopy Discontinued Insurance [place] MED[place]
== END 2025-03-11 10:03 | disposition home or self-care (01) ==
LOC: HO.RESP 10:02
PROVIDERS: PCP Student in an Organized Health Care Education/Training Program; Visit Provider Student in an Organized Health Care Education/Training Program
DX: R06.00 Dyspnea, unspecified (principal); F17.210 Nicotine dependence, cigarettes, uncomplicated
CPT/HCPCS: 94060; 94640; 94727; 94729

== ENCOUNTER → 2025-03-11 10:10 | Outpatient (BNV) | payer MEDICAID, SELFPAY | PROVIDERS: PCP Student in an Organized Health Care Education/Training Program; Visit Provider Internal Medicine Pulmonary Disease | DX: R06.00 Dyspnea, unspecified (principal) | CPT/HCPCS: 94060; 94727; 94729 ==

== ENCOUNTER 2025-04-27 13:10 | Outpatient (REF) | payer MEDICAID, SELFPAY ==
--- OUTSIDE RECORDS SUMMARY | 2025-04-22 23:59 | XMS_ITS | Continuity of Care Document ---
Author Organization [facility] Address [address] [place] [address] [address] [place] [address]- Care Team Providers Care Ironworker Helper Shop Name Role Phone Quinton Woody MD, Trice Gonzalez Primary Care Lupe daniels [id number] Date(s): 04/15/25 - 04/22/[address] [place], [place] [address] Attending Physician: Tay Becerra MD Encounter Type: Office Visit Allergies, Adverse Reactions, Alerts Substance Criticality Severity Reaction Reaction Severity Status amoxicillin rash Active Bactrim 1 Unable to assess criticality Persistent Moderate Active traZODone Feeling groggy Nightmares Active 1hives Functional Status Functional Status Assessment Assessment Assessment Component Result Effecti ve Date Disability status [CUBS] I'm Safe - I rarely have acute or chronic symptoms affecting housing, employment, social interactions, etc. 04/15/25 Difficulty communica ting in usual language No 04/15/25 Because of a physica l, mental, or emotional condition, do you have serious difficulty concentrating, remembering, or making decisions No 04/15/25 Do you need any ag tional assistance or accommodations during your visit No 04/15/25 Do you have serious difficulty walking or climbing stairs No 04/15/25 Because of a physica l, mental, or emotional condition, do you have difficulty doing errands alone such as visiting a physician's office or shopping No 04/15/25 Are you deaf, or do you have serious difficulty hearing No 04/15/25 Are you blind, or do you have serious difficulty seeing, even when wearing glasses No 04/15/25 Difficulty Reading O r Writing No 04/15/25 Do you have difficul ty dressing or bathing No 04/15/25 Immunizations Given and Recorded Vaccine Date Status Refusal Reason pneumococcal 20-valent conjugate vaccine 10/09/23 Recorded pneumococcal 20-valent conjugate vaccine 08/16/22 Given tetanus/diphtheria/pertussis, acel(Tdap) 10/09/23 Recorded tetanus/diphtheria/pertussis, acel(Tdap) 06/12/18 Given [id number] 12y+ bivalent booster vax 10/11/22 Given influenza virus vaccine, inactivated 08/16/22 Give n influenza virus vaccine, inactivated 09/20/21 Give n influenza virus vaccine, inactivated 07/04/19 Give n influenza virus vaccine, inactivated 06/12/18 Give n influenza virus vaccine, inactivated 02/17/17 Give n influenza virus vaccine, inactivated 1 07/01/12 Gi rafael influenza virus vaccine, inactivated 07/14/10 Give n SARS-CoV-2 mRNA (kwdemin-[id number]-wwman) vax 09/20/21 Given Meningococcal Conjugate Vaccine 12/10/18 Given Meningococcal Conjugate Vaccine 06/12/18 Given pneumococcal 23-valent vaccine 02/17/17 Given Fluzone (oldterm) 05/15/11 Given Influenza Vaccine (oldterm) 07/08/09 Given Influenza Vaccine (oldterm) 2 03/03/08 Given influ virus vac, H1N1, inactive(oldterm) 07/08/09 Given Pneumococcal Poly (PPV23) (oldterm) 3 08/04/04 Giv en Hepatitis B Vaccine (old term) 4 08/04/04 Given Hepatitis B Vaccine (old term) 5 03/01/04 Given Hepatitis B Vaccine (old term) 6 01/29/04 Given Hepatitis A Vaccine (oldterm) 7 03/01/04 Given tetanus-diphtheria toxoids (Td) 8 01/27/04 Given 1Admin Note: vis 11/27/11 2Admin Note: sanofi pasteur 3Admin Note: given by [facility] RN 4Admin Note: B3 - given by [facility] RN 5Admin Note: B2-given by [facility] RN 6Admin Note: B1-given by [facility] RN 7Admin Note: A1-given by [facility] RN 8Admin Note: given by [facility] RN Medications Biktarvy oral tablet 1 tablet, By Mouth, Daily, # 90 tablet, 3 Refills, Maintenance, 10/31/21 11:27:00 AM EDT, [facility], 1 tablet By Mouth Daily, 156, cm, 09/29/21 10:40:00 EDT, Height Start Date: 10/31/21 Status: Ordered Medication Dispense Status: Completed Quantity: 90.0 Unit: tablet Total Allowed Fills: 4 Fills Dispensed: 0 Biktarvy oral tablet 1 tablet, By Mouth, Daily, # 90 tablet, 0 Refills, Maintenance, 11/15/22 2:10:00 AM EDT, [facility], 1 tablet By Mouth Daily, 156, cm, 10/11/22 14:26:00 EDT, Height Start Date: 11/15/22 Status: Ordered Medication Dispense Status: Completed Quantity: 90.0 Unit: tablet Total Allowed Fills: 1 Fills Dispensed: 0 Biktarvy oral tablet 0 Refills, Maintenance, 02/23/25 3:22:00 PM EDT, Partial fill upon patient request if the prescription is for a schedule II opioid drug. Start Date: 02/23/25 Status: Ordered Medication Dispense Status: Completed Total Allowed Fills: 1 Fills Dispensed: 0 busPIRone 5 mg oral tablet 5 Unknown, oral, 0 Refill(s), Take 1 Tablet by mouth 3 (three) times daily for 30 days., Refills 0,11/26/24 8:00:00 PM EDT, Partial fill upon patient request if the prescription is for a schedule II opioid drug. Start Date: 11/26/24 Status: Ordered Medication Dispense Status: Completed Total Allowed Fills: 1 Fills Dispensed: 0 Counterforce brace Counterforce brace, See Instructions, # 1 units, Refills 0, Tot. Refills 0, Maintenance, Lateral epicondylitis (M77.10) Apply to left forearm, 12/10/18 10:14:05 AM EDT, Compound Start Date: 12/10/18 Status: Ordered Medication Dispense Status: Completed Quantity: 1.0 Unit: Units Total Allowed Fills: 1 Fills Dispensed: 0 Indications: Lateral epicondylitis, unspecified elbow; diazepam 5 mg oral tablet 5 mg, 1, tablet, By Mouth, Every 8 hours, PRN, Do not take this medication the same time as oxycodone., # 40 tablet, Refills 0, Tot. Refills 0, Maintenance, Spasm, 03/17/25 9:18:00 AM EDT, Route to Pharmacy Electronically, [facility], Partial fill upon patient request if the prescription is for a schedule II opioid drug., 156, cm, 02/23/25 15:11:00 EDT, Height Start Date: 03/17/25 Status: Ordered Medication Dispense Status: Completed Quantity: 40.0 Unit: tablet Total Allowed Fills: 1 Fills Dispensed: 0 diclofenac 1% topical gel 1 application, Topically, 4 times a day, PRN rib pain not to exceed 32 grams/day, # 100 Gm, 0 Refills, Maintenance, 05/11/22 11:46:00 AM EST, Gel, [facility], Partial fill upon patient request if the prescription is for a schedule II opioid drug., 156, cm, 05/11/22 11:26:00 EST, Height Start Date: 05/11/22 Status: Ordered Medication Dispense Status: Completed Quantity: 100.0 Unit: g Total Allowed Fills: 1 Fills Dispensed: 0 docusate sodium 100 mg oral capsule 100 mg, 1, capsule, By Mouth, 2 times a day, PRN, # 60 capsule, Refills 2, Tot. Refills 2, Maintenance, for constipation, 03/17/25 9:18:00 AM EDT, Route to Pharmacy Electronically, [facility], Partial fill upon patient request if the prescription is for a schedule II opioid drug., 156, cm, 02/23/25 15:11:00 EDT, Height Start Date: 03/17/25 Status: Ordered Medication Dispense Status: Completed Quantity: 60.0 Unit: capsule Total Allowed Fills: 3 Fills Dispensed: 0 FLUoxetine 40 mg oral capsule 1 capsule, By Mouth, Daily, FOR MOOD., # 30 capsule, 11 Refills, 06/23/22 12:52:00 PM EST, [facility], 156, cm, 05/11/22 11:26:00 EST, Height Start Date: 06/23/22 Status: Ordered Medication Dispense Status: Completed Quantity: 30.0 Unit: capsule Total Allowed Fills: 12 Fills Dispensed: 0 FLUoxetine 40 mg oral capsule 0 Refills, Maintenance, 02/23/25 3:22:00 PM EDT, Partial fill upon patient request if the prescription is for a schedule II opioid drug. Start Date: 02/23/25 Status: Ordered Medication Dispense Status: Completed Total Allowed Fills: 1 Fills Dispensed: 0 lidocaine 5% topical film 1 patch, Topically, Daily, PRN Pain , Mild, Apply to rib PRN pain remove patches after 12 hours, # 30 patch, 0 Refills, Maintenance, 05/11/22 11:46:00 AM EST, Film, [facility], Partial fill upon patient request if the prescription is for a schedule II opioid drug., 1 patch Topically Daily,PRN:Pain , Mild,Instr:Apply to rib PRN pain ; remove patches after 12 hours, 156, cm, 05/11/22 11:26:00 EST, Height Start Date: 05/11/22 Status: Ordered Medication Dispense Status: Completed Quantity: 30.0 Unit: patch Total Allowed Fills: 1 Fills Dispensed: 0 medroxyPROGESTERone 10 mg oral tablet 10 mg, 1, tablet, By Mouth, Daily, # 10 tablet, Refills 6, Tot. Refills 6, Maintenance, 04/14/19 2:15:25 PM EST, Route to Pharmacy Electronically, [facility] Start Date: 04/14/19 Stop Date: 06/23/19 Status: Ordered Medication Dispense Status: Completed Quantity: 10.0 Unit: tablet Total Allowed Fills: 7 Fills Dispensed: 0 mirtazapine 7.5 mg oral tablet 1 tablet = 7.5 mg, By Mouth, Daily at bedtime, For sleep, to replace Trazodone, # 90 tablet, 0 Refills, Maintenance, 06/01/23 6:52:00 PM EST, [facility], Partial fill upon patient request if the prescription is for a schedule II opioid drug., 156, cm, 10/11/22 14:26:00 EDT, Height Start Date: 06/01/23 Status: Ordered Medication Dispense Status: Completed Quantity: 90.0 Unit: tablet Total Allowed Fills: 1 Fills Dispensed: 0 oxyCODONE 5 mg oral tablet 5 mg, 1, tablet, By Mouth, Every 6 hours, PRN, Do not take this medication the same time as diazepam., # 28 tablet, Refills 0, Tot. Refills 0, Maintenance, for pain, 03/17/25 9:18:00 AM EDT, Route toPharmacy Electronically, [facility], Partial fill upon patient request if the prescription is for a schedule II opioid drug., 156, cm, 02/23/25 15:11:00 EDT, Height Start Date: 03/17/25 Status: Ordered Medication Dispense Status: Completed Quantity: 28.0 Unit: tablet Total Allowed Fills: 1 Fills Dispensed: 0 oxyCODONE 5 mg oral tablet 5 mg, 1, tablet, By Mouth, Every 6 hours, PRN, Do not take this medication the same time as diazepam., # 28 tablet, Refills 0, Tot. Refills 0, Maintenance, for pain, 03/24/25 1:24:00 PM EDT, Route toPharmacy Electronically, [facility], Partial fill upon patient request if the prescription is for a schedule II opioid drug., 156, cm, 02/23/25 15:11:00 EDT, Height Start Date: 03/24/25 Status: Ordered Medication Dispense Status: Completed Quantity: 28.0 Unit: tablet Total Allowed Fills: 1 Fills Dispensed: 0 QUEtiapine 300 mg oral tablet 30 each, 0 Refill(s), TAKE 1 TABLET BY MOUTH EVERY DAY AT BEDTIME, 0 Refills, 02/23/25 3:10:00 PM EDT, Partial fill upon patient request if the prescription is for a schedule II opioid drug. Start Date: 02/23/25 Status: Ordered Medication Dispense Status: Completed Total Allowed Fills: 1 Fills Dispensed: 0 QUEtiapine 300 mg oral tablet 0 Refills, Maintenance, 02/23/25 3:22:00 PM EDT, Partial fill upon patient request if the prescription is for a schedule II opioid drug. Start Date: 02/23/25 Status: Ordered Medication Dispense Status: Completed Total Allowed Fills: 1 Fills Dispensed: 0 Spacer for inhaler Spacer for inhaler, See Instructions, # 1 each, Refills 0, Tot. Refills 0, Maintenance, Asthma (J45.909), 05/11/22 11:49:00 AM EST, Compound, 156, cm, 05/11/22 11:26:00 EST, Height Start Date: 05/11/22 Status: Ordered Medication Dispense Status: Completed Quantity: 1.0 Unit: each Total Allowed Fills: 1 Fills Dispensed: 0 Indications: Mild persistent asthma, uncomplicated; Symbicort 80mcg/4.5mcg Inhaler 2, puffs, Inhalation, 2 times a day, # 10.2 Gm, Refills 5, Maintenance, 12/12/22 9:06:00 AM EDT, Route to Pharmacy Electronically, NCPDP_[id number], [facility], 156, cm, 10/11/22 14:26:00 EDT, Height Start Date: 12/12/22 Status: Ordered Medication Dispense Status: Completed Quantity: 10.2 Unit: g Total Allowed Fills: 1 Fills Dispensed: 0 Tennis Elbow Brace Tennis Elbow Brace, See Instructions, # 1 units, Refills 0, Tot. Refills 0, Maintenance, Lateral epicondylitis (M77.10) Apply to left forearm, 01/09/19 4:52:10 PM EDT, Compound Start Date: 01/09/19 Status: Ordered Medication Dispense Status: Completed Quantity: 1.0 Unit: Units Total Allowed Fills: 1 Fills Dispensed: 0 Indications: Lateral epicondylitis, unspecified elbow; Ventolin HFA 108 mcg/inh inhalation aerosol with adapter 2 puffs, Inhalation, Every 4 hours, PRN for wheezing, # 18 Gm, 0 Refills, Maintenance, 05/11/22 11:48:00 AM EST, Aerosol, [facility], Partial fill upon patient request if the prescription is for a schedule II opioid drug., 156, cm, 05/11/22 11:26:00 EST, Height Start Date: 05/11/22 Status: Ordered Medication Dispense Status: Completed Quantity: 18.0 Unit: g Total Allowed Fills: 1 Fills Dispensed: 0 Indications: Mild persistent asthma, uncomplicated; Voltaren 1% topical gel 1 application, Topically, 4 times a day, Apply to left elbow PRN pain. not to exceed 8 grams/day/single joint of upper extremities, # 100 Gm, 2 Refills, Maintenance, 12/10/18 10:12:49 AM EDT, Gel, [id number], 1 application Topically 4 times a day,Instr:Apply to left elbow PRN pain. ; not to exceed 8 grams/day/single joint of upper extremities Start Date: 12/10/18 Status: Ordered Medication Dispense Status: Completed Quantity: 100.0 Unit: g Total Allowed Fills: 3 Fills Dispensed: 0 Problem List Condition Confirmation Course Effective Dates Status Health St atus Informant Abnormal uterine bleeding (AUB) 1 Confirmed 03/28/19 Active AIDS - CD4 150 in 2007 Confirmed Active Anxiety disorder Confirmed Active Asymptomatic bacteriuria Confirmed Active LGSIL on Pap smear of cervix/neg hpv 2, 3 Confirmed 03/17/19 Active Chlamydia Confirmed Active Conization of uterine cervix for hx DAI II Confirmed Active 4 para 4 all Confirmed Active H/O: depression Confirmed Active H/O tubal ligation Confirmed Active HIV positive Confirmed Active Epicondylitis, lateral Confirmed Active Routine screening for STI (sexually transmitted infection) Confirmed Active Routine screening for STI (sexually transmitted infection) Confirmed Active Screening for diabetes mellitus Confirmed Active STI (sexually transmitted infection) Confirmed Active Tobacco dependence, continuous Confirmed Active 1reg cycles, heavy menses. w/u in progress. EMB neg-prolif endometrium 03/2019. 2bx, ecc and emb no dysplasia. f/u pap, cotesting 03/2020 3hx ckc 2005 without f/u. pap 02/2019 lgsil/neg hpv. colpo done for hx ckc, hx HIV. see notes. Vital Signs Most recent to oldest [Reference Range]: 1 Height 156.0 cm (04/15/25 2:10 PM) Weight 72.0 kg (04/15/25 2:10 PM) Pulse Rate [55-90 bpm] 72 bpm (04/15/25 2:10 PM) Body Mass Index [18.5-24.99 kg/m2] 29.59 kg/m2 *H* (04/15/25 2:10 PM) Blood Pressure [90-138/55-84 mm Hg] 135/ 85mm Hg (04/15/25 2:10 PM) Temperature [96.8-100.4 DegF] 98.0 DegF (04/15/25 2:10 PM) Temperature Route Temporal (04/15/25 2:10 PM) Social History Social History Type Response Sexual Gender identity: Fem trever. Preferred pronoun: She/Her/Hers. Smoking Status Use: 4 or less cigar ettes(less than 1/4 pack)/day in last 30 days;5-9 cigarettes (between 1/4 to 1/2 pack)/day in last 30 days; Type: Cigarettes entered on: 02/23/25 Sex Sex Representation Female (finding) Patient Care team information Care Team Personnel Name: Josiah MCCONNELL, Cyndy Gaytan Position: Reference Physician Member Role: Primary Care Nurse [facility] [address] [facility] [place], [place] [address] Telecom: Name: Jenna Meyer MD Position: [facility] Physician - Infectious Disease Member Role: Lif[employer] Consulting Physician Address: [address] [facility] [place], [place] [address] Telecom: Name: Quinton Woody MD, Trice Gonzalez Position: [facility] Outreach Member Role: PCP Address: [address] [place], [place] [address] Telecom: Care Team Related Persons Name: MARTINA REAVES Name: SHONDA ARMENDARIZ Name: FRAN TUCKER Insurance Providers Guarantor name: BELINDA ARMENDARIZ Health Plan Information #: 1 Payer: [employer] Payer Identifier: NA Member Number: [id number] Group Number: [id number] Subscriber Identifier: [id number] Relationship to Subscriber: self Coverage Type: MEDICAID Coverage Verification Date: NA Telecom: NA Address: NA
--- OUTSIDE RECORDS SUMMARY | 2025-04-24 23:59 | XMS_ITS | Continuity of Care Document ---
Author Organization [facility] Address [address] [place] [address] [address] [place] [address]- Care Team Providers Care Xray Tech Name Role Phone Quinton Woody MD, Trice Gonzalez Primary Care Lupe daniels Encounter [facility] Date(s): 03/25/25 - 04/24/[address] [place], [place] [address] Encounter Type: Triage Allergies, Adverse Reactions, Alerts Substance Criticality Severity Reaction Reaction Severity Status amoxicillin rash Active Bactrim 1 Unable to assess criticality Persistent Moderate Active traZODone Feeling groggy Nightmares Active 1hives Immunizations Given and Recorded Vaccine Date Status Refusal Reason pneumococcal 20-valent conjugate vaccine 10/09/23 Recorded pneumococcal 20-valent conjugate vaccine 08/16/22 Given tetanus/diphtheria/pertussis, acel(Tdap) 10/09/23 Recorded tetanus/diphtheria/pertussis, acel(Tdap) 06/12/18 Given [id number] 12y+ bivalent booster vax 10/11/22 Given influenza virus vaccine, inactivated 08/16/22 Give n influenza virus vaccine, inactivated 09/20/21 Give n influenza virus vaccine, inactivated 07/04/19 Give n influenza virus vaccine, inactivated 06/12/18 Give n influenza virus vaccine, inactivated 02/17/17 Give n influenza virus vaccine, inactivated 1 07/01/12 Gi rafael influenza virus vaccine, inactivated 07/14/10 Give n SARS-CoV-2 mRNA (guxmdee-huck-rxari) vax 09/20/21 Given Meningococcal Conjugate Vaccine 12/10/18 [...] Note: sanofi pasteur 3Admin Note: given by [facility] RN 4Admin Note: B3 - given by [facility] RN 5Admin Note: B2-given by [facility] RN 6Admin Note: B1-given by [facility] RN 7Admin Note: A1-given by [facility] RN 8Admin Note: given by [facility] RN Medications Biktarvy oral tablet 1 tablet, By Mouth, Daily, # 90 tablet, 3 Refills, Maintenance, 10/31/21 11:27:00 AM EDT, [facility], 1 tablet By Mouth Daily, 156, cm, 09/29/21 10:40:00 EDT, Height Start Date: 10/31/21 Status: Ordered Medication Dispense Status: Completed Quantity: 90.0 Unit: tablet Total Allowed Fills: 4 Fills Dispensed: 0 Biktarvy oral tablet 1 tablet, By Mouth, Daily, # 90 tablet, 0 Refills, Maintenance, 11/15/22 2:10:00 AM EDT, [facility], 1 tablet By Mouth [...] 9:18:00 AM EDT, Route to Pharmacy Electronically, [facility], Partial fill upon patient request [...] Refills, Maintenance, 05/11/22 11:46:00 AM EST, Gel, [facility], Partial fill upon patient request if [...] 9:18:00 AM EDT, Route to Pharmacy Electronically, [facility], Partial fill upon patient request [...] capsule, 11 Refills, 06/23/22 12:52:00 PM EST, [facility], 156, cm, 05/11/22 11:26:00 EST, Height [...] Refills, Maintenance, 05/11/22 11:46:00 AM EST, Film, [facility], Partial fill upon patient request if [...] 2:15:25 PM EST, Route to Pharmacy Electronically, [facility] Start Date: 04/14/19 Stop Date: 06/23/19 Status: Ordered Medication Dispense Status: Completed Quantity: 10.0 Unit: tablet Total Allowed Fills: 7 Fills Dispensed: 0 mirtazapine 7.5 mg oral tablet 1 tablet = 7.5 mg, By Mouth, Daily at bedtime, For sleep, to replace Trazodone, # 90 tablet, 0 Refills, Maintenance, 06/01/23 6:52:00 PM EST, [facility], Partial fill upon patient [...] for pain, 03/17/25 9:18:00 AM ED[facility], Partial fill upon patient request [...] 03/24/25 1:24:00 PM EDT, Route toPharmacy Electronically, [facility], Partial fill upon patient request [...] 9:06:00 AM EDT, Route to Pharmacy Electronically, NCPDP_[id number], [facility], 156, cm, 10/11/22 14:26:00 [...] Refills, Maintenance, 05/11/22 11:48:00 AM EST, Aerosol, [facility], Partial fill upon patient [...] for hx ckc, hx HIV. see notes. Social History Social History Type Response Sexual [...] Physician Member Role: Primary Care Nurse Address: [address] [place] [address] [address] Telecom: Name: Jenna Meyer MD Position: [facility] Physician - Infectious Disease Member Role: [employer]etime Consulting Physician Address: [address] [place] [address] [place], [place] [address] Telecom: Name: Quinton Woody MD, Trice Gonzalez Position: [facility] Outreach Member Role: PCP Address: [address] [place], [place] [address] Telecom: Care Team Related Persons Name: MARTINA REAVES Name: SHONDA ARMENDARIZ Name: FRAN TUCKER Insurance Providers Guarantor name: BELINDA ARMENDARIZ Health Plan Information #: 1 Payer: [employer]ER [employer] Payer Identifier: NA Member Number: [id number] Group Number: [id number] Subscriber Identifier: NA Relationship to Subscriber: self Coverage Type: MEDICAID Coverage Verification Date: NA Telecom: NA Address: NA
--- OUTSIDE RECORDS SUMMARY | 2025-04-25 23:59 | XMS_ITS | Continuity of Care Document ---
Author Organization [facility]abelle [facility] Address [address] [place] [address]- Care Team Providers Care Staff Pharmacist Hospital Name Role Phone Quinton Woody MD, Trice Gonzalez Primary Care Lupe daniels [place] [facility] [place]): [place]/25/25 [facility] Anabelle Telless [facility] [address] [place], [place] [address] Encounter Type: Triage Allergies, Adverse Reactions, Alerts Substance Criticality Severity Reaction Reaction Severity Status amoxicillin rash Active Bactrim 1 Unable to assess criticality Persistent Moderate Active traZODone Feeling groggy Nightmares Active 1hives Immunizations Given and Recorded Vaccine Date Status Refusal Reason pneumococcal 20-valent conjugate vaccine 10/09/23 Recorded pneumococcal 20-valent conjugate vaccine 08/16/22 Given tetanus/diphtheria/pertussis, acel(Tdap) 10/09/23 Recorded tetanus/diphtheria/pertussis, acel(Tdap) 06/12/18 Given [id number] 12y+ bivalent booster vax 10/11/22 Given influenza virus vaccine, inactivated 08/16/22 Give n influenza virus vaccine, inactivated 09/20/21 Give n influenza virus vaccine, inactivated 07/04/19 Give n influenza virus vaccine, inactivated 06/12/18 Give n influenza virus vaccine, inactivated 02/17/17 Give n influenza virus vaccine, inactivated 1 07/01/12 Gi rafael influenza virus vaccine, inactivated 07/14/10 Give n SARS-CoV-2 mRNA ([id number]) vax 09/20/21 Given Meningococcal Conjugate Vaccine 12/10/18 [...] Note: sanofi pasteur 3Admin Note: given by [facility] RN 4Admin Note: B3 - given by [facility] RN 5Admin Note: B2-given by [facility] RN 6Admin Note: B1-given by [facility] RN 7Admin Note: A1-given by [facility] RN 8Admin Note: given by [facility] RN Medications Biktarvy oral tablet 1 tablet, By Mouth, Daily, # 90 tablet, 3 Refills, Maintenance, 10/31/21 11:27:00 AM EDT, [facility], 1 tablet By Mouth Daily, 156, cm, 09/29/21 10:40:00 EDT, Height Start Date: 10/31/21 Status: Ordered Medication Dispense Status: Completed Quantity: 90.0 Unit: tablet Total Allowed Fills: 4 Fills Dispensed: 0 Biktarvy oral tablet 1 tablet, By Mouth, Daily, # 90 tablet, 0 Refills, Maintenance, 11/15/22 2:10:00 AM EDT, [facility], 1 tablet By Mouth Daily, [...] 9:18:00 AM EDT, Route to Pharmacy Electronically, [facility], Partial fill upon patient request if [...] Refills, Maintenance, 05/11/22 11:46:00 AM EST, Gel, [facility], Partial fill upon patient request [...] 9:18:00 AM EDT, Route to Pharmacy Electronically, [facility], Partial fill upon patient request if the prescription is for a schedule II opioid drug., 156, cm, 02/23/25 15:11:00 EDT, Height Start Date: 03/17/25 Status: Ordered Medication Dispense Status: Completed Quantity: 60.0 Unit: capsule Total Allowed Fills: 3 Fills Dispensed: 0 FLUoxetine 40 mg oral capsule 1 capsule, By Mouth, Daily, FOR MOOD., # 30 capsule, 11 Refills, 06/23/22 12:52:00 PM EST, [facility], 156, cm, 05/11/22 11:26:00 EST, [...] Refills, Maintenance, 05/11/22 11:46:00 AM EST, Film, [facility], Partial fill upon patient request [...] 2:15:25 PM EST, Route to Pharmacy Electronically, [facility] Start Date: 04/14/19 Stop Date: 06/23/19 Status: Ordered Medication Dispense Status: Completed Quantity: 10.0 Unit: tablet Total Allowed Fills: 7 Fills Dispensed: 0 mirtazapine 7.5 mg oral tablet 1 tablet = 7.5 mg, By Mouth, Daily at bedtime, For sleep, to replace Trazodone, # 90 tablet, 0 Refills, Maintenance, 06/01/23 6:52:00 PM EST, [facility], Partial fill upon patient request [...] 03/17/25 9:18:00 AM EDT, Route toPharmacy Electronically, [facility], Partial fill upon patient request if [...] for pain, 03/24/25 1:24:00 PM EDT, [place], [facility], Partial fill upon patient request if [...] 9:06:00 AM EDT, Route to Pharmacy Electronically, NCPDP_[id number], [facility], 156, cm, 10/11/22 14:26:00 [...] Refills, Maintenance, 05/11/22 11:48:00 AM EST, Aerosol, [facility], Partial fill upon patient request [...] Physician Member Role: Primary Care Nurse Address: [address] [place] [address] Clinical [place], [place] [address] Telecom: Name: Jenna Meyer MD Position: [facility] Physician - Infectious Disease Member Role: Lifetime Consulting Physician Address: [address] [place] [address] [place], [place] [address] Telecom: Name: Quinton Woody MD, Trice Gonzalez Position: [facility] Outreach Member Role: PCP Address: [address] [place], [place] [address] Telecom: Care Team Related Persons Name: AMRTINA REAVES Name: SHONDA ARMENDARIZ Name: FRAN TUCKER Insurance Providers Guarantor name: BELINDA ARMENDARIZ Health Plan Information #: 1 Payer: [employer] Payer Identifier: NA Member Number: [id number] Group Number: NA Subscriber Identifier: NA Relationship to Subscriber: self Coverage Type: MEDICAID Coverage Verification Date: NA Telecom: NA Address: NA
[2025-04-27 14:49] LABS: CT PCR Urine NOT DETECTED (Not Detect.); NG PCR Urine NOT DETECTED (Not Detect.)
[2025-04-28 21:54] LABS: C. Trachomatis RNA TMA, Throat NOT DETECTED (NOT DETECTED); N. gonorrhoeae RNA TMA, Throat NOT DETECTED (NOT DETECTED)
== END 2025-04-27 13:11 | disposition home or self-care (01) ==
LOC: HO.LNP 13:10
PROVIDERS: Visit Provider Student in an Organized Health Care Education/Training Program
DX: Z21 Asymptomatic human immunodeficiency virus [HIV] infection status (principal)
CPT/HCPCS: 87491; 87591